=== PATIENT | male | born 2005 | race Caucasian/White ===

== ENCOUNTER 2023-02-23 20:27 | Emergency (ER) | payer OTHER, SELFPAY ==
[2023-02-23 21:07] VITALS: BP 154/96; PULSE 89; RESP 18; TEMP 36.8; O2SAT 99; BMI 27.2
--- NOTE | 2023-02-23 21:08 | XR_ITS ---
PROCEDURE INFORMATION: Exam: XR Right Hand Exam date and time: 02/23/2023 9:12 PM Age: 17 years old Clinical indication: Pain; Finger(s); Right; Additional info: Pain in RT thumb TECHNIQUE: Imaging protocol: Radiologic exam of the right hand. Views: 3 or more views. COMPARISON: No relevant prior studies available. FINDINGS: Bones/joints: Normal. Soft tissues: Normal. IMPRESSION: No acute findings.
[2023-02-23 22:25] VITALS: BP 148/73; PULSE 81; RESP 18; TEMP 36.8; O2SAT 99
--- NOTE | 2023-02-23 22:25 | PC.NURSE ---
Dr. Pineda at
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
[2023-02-23 22:32] VITALS: BP 140/94; PULSE 55; O2SAT 96
--- NOTE | 2023-02-23 22:43 | PC.NURSE ---
Rounded on pt. No needs voiced.
== END 2023-02-23 23:00 | disposition home or self-care (01) ==
PROVIDERS: Emergency Provider Emergency Medicine
DX: S63.601A Unspecified sprain of right thumb, initial encounter (principal); F17.200 Nicotine dependence, unspecified, uncomplicated; X58.XXXA Exposure to other specified factors, initial encounter
CPT/HCPCS: 73130; 99283; 99284